=== PATIENT | male | born 1975 | race Caucasian/White ===

== ENCOUNTER 2016-08-22 21:52 | Emergency (ER) | payer OTHER ==
[~2016-08-22] VITALS: Ht 185.4 cm; Wt 102.0 kg
[2016-08-22 22:09] LABS: HEMATOCRIT 47.2 % (39.0-50.0); HEMOGLOBIN 17.1 g/dl (14.0-18.0); IMMATURE GRANULOCYTES 0.3 % (0.0-1.0); MEAN CELL VOLUME 92.5 fL CALC (80.0-100.0); MEAN CORPUSCULAR HGB 33.5 pG CALC (26.0-32.0); MEAN CORPUSCULAR HGB CONC 36.2 g/L CALC (32.0-36.0); NEUT# 4.23 thou/uL (1.82-7.42); RED BLOOD COUNT 5.1 mill/uL (4.70-6.10); RED CELL DISTRI WIDTH 12.5 % (11.5-15.5)
[2016-08-22 22:28] LABS: ALBUMIN 4.6 g/dL (3.2-5.0); ALKALINE PHOSPHATASE 56 u/l (38-126); ANION GAP 17 (6-22 (CALC)); BUN 13 mg/dL (9-20); BUN/CREATININE RATIO 11 (12-20 (CALC)); CALCIUM 9.6 mg/dL (8.4-10.2); CARBON DIOXIDE 20 mmol/l (22-30); CHLORIDE 107 mmol/l (95-108); CREATININE 1.1 mg/dL (0.7-1.3); GFR > 60 ML/MIN (>=60 (CALC)); GFR FOR AFR.AMER. > 60 ML/MIN (>=60 (CALC)); GLUCOSE 102 mg/dL (75-110); SGOT/AST 23 u/l (17-59); SGPT/ALT 35 u/l (21-72); SODIUM 140 mmol/l (137-146); TOTAL PROTEIN 7.6 g/dL (6.3-8.2)
[2016-08-23] MEDS ORDERED: CIPROFLOXACN500 MG PO (00:55)
[2016-08-23] MEDS ORDERED: MOTRIN800 MG PO (00:55)
[2016-08-23 01:10] VITALS: BP 122/76
== END 2016-08-23 01:10 | disposition home or self-care (01) | DRG 392 ==
LOC: ED 21:52
PROVIDERS: Emergency Medicine
DX: R10.11 Right upper quadrant pain (principal); F31.9 Bipolar disorder, unspecified; R10.31 Right lower quadrant pain; F43.10 Post-traumatic stress disorder, unspecified

== ENCOUNTER 2017-01-13 15:36 | Emergency (ER) | payer SELFPAY ==
[~2017-01-13] VITALS: Ht 185.4 cm; Wt 103.8 kg
[~2017-01-13 15:36] MED LIST: CIPROFLOXACN500 MG PO; MOTRIN800 MG PO
[2017-01-13] MEDS ORDERED: TRAMADOL HYDROC50 MG PO (17:21)
[2017-01-13 17:25] VITALS: BP 150/84
== END 2017-01-13 17:25 | disposition home or self-care (01) | DRG 563 ==
LOC: ED 15:36
DX: S63.92XA Sprain of unspecified part of left wrist and hand, initial encounter (principal); F31.9 Bipolar disorder, unspecified; F43.10 Post-traumatic stress disorder, unspecified; F17.210 Nicotine dependence, cigarettes, uncomplicated; X58.XXXA Exposure to other specified factors, initial encounter; Y93.89 Activity, other specified; Y92.009 Unspecified place in unspecified non-institutional (private) residence as the place of occurrence of the external cause

== ENCOUNTER 2017-05-24 21:15 | Emergency (ER) | payer MEDICARE, MEDICAID ==
[~2017-05-24] VITALS: Ht 185.4 cm; Wt 99.2 kg
[~2017-05-24 21:15] MED LIST changes: +TRAMADOL HYDROC50 MG PO
[2017-05-24 22:23] LABS: INFLUENZA A NONE DETECTED (NONE DETECT); INFLUENZA B NONE DETECTED (NONE DETECT)
[2017-05-24] MEDS ORDERED: AMOXICILLIN500 MG PO (23:16)
[2017-05-24 23:35] VITALS: BP 122/78
== END 2017-05-24 23:36 | disposition home or self-care (01) ==
LOC: ED 21:15
PROVIDERS: Emergency Medicine
DX: J02.0 Streptococcal pharyngitis (principal); R94.31 Abnormal electrocardiogram [ECG] [EKG]; R11.10 Vomiting, unspecified; R19.7 Diarrhea, unspecified; R50.9 Fever, unspecified

== ENCOUNTER 2017-07-12 21:23 | Emergency (ER) | payer MEDICARE, MEDICAID ==
[~2017-07-12] VITALS: Ht 185.4 cm; Wt 100.0 kg
[~2017-07-12 21:23] MED LIST changes: +AMOXICILLIN500 MG PO
[2017-07-12] MEDS ORDERED: TAM75CAP PO (22:05)
[2017-07-12] MEDS ORDERED: ONDANSETRON4 MG PO (22:05)
[2017-07-12 22:45] VITALS: BP 128/83
== END 2017-07-12 22:45 | disposition home or self-care (01) ==
LOC: ED 21:23
DX: J11.1 Influenza due to unidentified influenza virus with other respiratory manifestations (principal); F17.210 Nicotine dependence, cigarettes, uncomplicated; R05 Cough; R53.1 Weakness

== ENCOUNTER 2017-11-30 20:23 | Emergency (ER) | payer BC ==
[~2017-11-30] VITALS: Ht 185.4 cm; Wt 96.2 kg
[~2017-11-30 20:23] MED LIST changes: +ONDANSETRON4 MG PO; +TAM75CAP PO
[2017-11-30 21:18] LABS: HEMATOCRIT 46.9 % (39.0-50.0); HEMOGLOBIN 16.8 g/dl (14.0-18.0); IMMATURE GRANULOCYTES 0.4 % (0.0-5.0); MEAN CELL VOLUME 93.6 fL CALC (80.0-100.0); MEAN CORPUSCULAR HGB 33.5 pG CALC (26.0-32.0); MEAN CORPUSCULAR HGB CONC 35.8 g/L CALC (32.0-36.0); NEUT# 6.21 thou/uL (1.82-7.42); RED BLOOD COUNT 5.01 mill/uL (4.70-6.10); RED CELL DISTRI WIDTH 12.9 % (11.5-15.5)
[2017-11-30 21:23] LABS: URINE BILIRUBIN - DIPSTICK NEGATIVE (NEGATIVE); URINE BLOOD DIPSTICK NEGATIVE (NEGATIVE); URINE GLUCOSE - DIPSTICK NEGATIVE (NEGATIVE); URINE KETONE NEGATIVE (NEGATIVE); URINE LEUK ESTERASE NEGATIVE (NEGATIVE); URINE NITRITE - DIPSTICK NEGATIVE (Negative); URINE PROTEIN - DIPSTICK TRACE mg/dL (NEG-TRACE); URINE SPECIFIC GRAVITY 1.025; URINE UROBILINOGEN - DIPSTICK 0.2 E.U./dL (0.2)
[2017-11-30 21:24] LABS: URINE CLARITY CLEAR; URINE COLOR DK. YELLOW
[2017-11-30 21:25] LABS: BARBITURATES NEGATIVE (NEGATIVE); COCAINE NEGATIVE (NEGATIVE); METHADONE NEGATIVE (NEGATIVE); OXCYCODONE NEGATIVE (NEGATIVE); TETRAHYDROCANNABIONOL NEGATIVE (NEGATIVE); TRICYLIC ANTIDEPRESSANTS NEGATIVE (NEGATIVE)
[2017-11-30 21:30] LABS: ALBUMIN 4.9 g/dL (3.2-5.0); ALKALINE PHOSPHATASE 76 u/l (38-126); ANION GAP 16 (6-22 (CALC)); BILIRUBIN, TOTAL 0.9 mg/dL (0.0-1.4); BUN 15 mg/dL (9-20); BUN/CREATININE RATIO 11 (12-20 (CALC)); CARBON DIOXIDE 25 mmol/l (22-30); CHLORIDE 104 mmol/l (95-108); CREATININE 1.5 mg/dL (0.7-1.3); GFR 52 ML/MIN (>=60 (CALC)); GFR FOR AFR.AMER. > 60 ML/MIN (>=60 (CALC)); POTASSIUM 3.5 mmol/l (3.5-5.1); SGOT/AST 22 u/l (17-59); SGPT/ALT 28 u/l (21-72); SODIUM 142 mmol/l (137-146); TOTAL PROTEIN 8.2 g/dL (6.3-8.2)
[2017-11-30] MEDS ORDERED: AMOXICILLIN500 MG PO (21:55)
[2017-11-30 22:33] VITALS: BP 113/67
== END 2017-11-30 22:34 | disposition home or self-care (01) | DRG 153 ==
LOC: ED 20:23
PROVIDERS: Emergency Medicine
DX: J02.0 Streptococcal pharyngitis (principal); F17.210 Nicotine dependence, cigarettes, uncomplicated

== ENCOUNTER 2018-05-04 12:11 | Emergency (ER) | payer OTHER ==
[~2018-05-04] VITALS: Ht 185.4 cm; Wt 110.0 kg
[2018-05-04] MEDS ORDERED: PROAIR HFA108 MCG/AC PO (12:40)
[2018-05-04] MEDS ORDERED: AUGMENTIN875TAB PO (12:40)
[2018-05-04 13:05] VITALS: BP 141/77
== END 2018-05-04 13:05 | disposition home or self-care (01) ==
LOC: ED 12:11
DX: J02.0 Streptococcal pharyngitis (principal); R05 Cough; F17.210 Nicotine dependence, cigarettes, uncomplicated

== ENCOUNTER 2018-07-02 09:12 | Emergency (ER) | payer OTHER ==
[~2018-07-02] VITALS: Ht 185.4 cm; Wt 102.3 kg
[~2018-07-02 09:12] MED LIST changes: +AUGMENTIN875TAB PO; +PROAIR HFA108 MCG/AC PO
[2018-07-02] MEDS ORDERED: AMOX/K CLAV875 M1 PO (11:02)
[2018-07-02 11:08] VITALS: BP 122/83
== END 2018-07-02 11:20 | disposition home or self-care (01) ==
LOC: ED 09:12
DX: S60.871A Other superficial bite of right wrist, initial encounter (principal); F17.210 Nicotine dependence, cigarettes, uncomplicated; W54.0XXA Bitten by dog, initial encounter; Y93.K1 Activity, walking an animal; Y92.009 Unspecified place in unspecified non-institutional (private) residence as the place of occurrence of the external cause

== ENCOUNTER 2018-07-18 16:21 | Emergency (ER) | payer OTHER ==
[~2018-07-18] VITALS: Ht 185.4 cm; Wt 113.0 kg
[~2018-07-18 16:21] MED LIST changes: +AMOX/K CLAV875 M1 PO
[2018-07-18 16:53] LABS: HEMATOCRIT 45.9 % (39.0-50.0); HEMOGLOBIN 16.2 g/dl (14.0-18.0); IMMATURE GRANULOCYTES 0.4 % (0.0-5.0); MEAN CELL VOLUME 94.8 fL CALC (80.0-100.0); MEAN CORPUSCULAR HGB 33.5 pG CALC (26.0-32.0); MEAN CORPUSCULAR HGB CONC 35.3 g/L CALC (32.0-36.0); NEUT# 4.19 thou/uL (1.82-7.42); RED BLOOD COUNT 4.84 mill/uL (4.70-6.10)
[2018-07-18 17:02] LABS: ALBUMIN 4.5 g/dL (3.2-5.0); ALKALINE PHOSPHATASE 62 u/l (38-126); ANION GAP 15 (6-22 (CALC)); BILIRUBIN, TOTAL 0.9 mg/dL (0.0-1.4); BUN 5 mg/dL (9-20); BUN/CREATININE RATIO 4 (12-20 (CALC)); CARBON DIOXIDE 24 mmol/l (22-30); CHLORIDE 102 mmol/l (95-108); CREATININE 1.2 mg/dL (0.7-1.3); GFR > 60 ML/MIN (>=60 (CALC)); GFR FOR AFR.AMER. > 60 ML/MIN (>=60 (CALC)); POTASSIUM 4.1 mmol/l (3.5-5.1); SGOT/AST 25 u/l (17-59); SODIUM 137 mmol/l (137-146); TOTAL PROTEIN 7.4 g/dL (6.3-8.2)
[2018-07-18 17:54] LABS: URINE BILIRUBIN - DIPSTICK NEGATIVE (NEGATIVE); URINE BLOOD DIPSTICK NEGATIVE (NEGATIVE); URINE COLOR YELLOW; URINE GLUCOSE - DIPSTICK NEGATIVE (NEGATIVE); URINE KETONE NEGATIVE (NEGATIVE); URINE LEUK ESTERASE NEGATIVE (Negative); URINE NITRITE - DIPSTICK NEGATIVE (Negative); URINE PROTEIN - DIPSTICK NEGATIVE (NEG-TRACE); URINE SPECIFIC GRAVITY 1.015
[2018-07-18 17:55] LABS: URINE CLARITY CLEAR
[2018-07-18 17:57] LABS: BARBITURATES NEGATIVE (NEGATIVE); COCAINE NEGATIVE (NEGATIVE); METHADONE NEGATIVE (NEGATIVE); OXCYCODONE NEGATIVE (NEGATIVE); TETRAHYDROCANNABIONOL NEGATIVE (NEGATIVE); TRICYLIC ANTIDEPRESSANTS NEGATIVE (NEGATIVE)
[2018-07-18] MEDS ORDERED: KEFLEX500 M1 PO (18:38)
[2018-07-18 18:46] VITALS: BP 154/77
== END 2018-07-18 18:49 | disposition home or self-care (01) ==
LOC: ED 16:21
PROVIDERS: Emergency Medicine
DX: J02.0 Streptococcal pharyngitis (principal); R41.82 Altered mental status, unspecified; R50.9 Fever, unspecified; R00.0 Tachycardia, unspecified
CPT/HCPCS: J0131